=== PATIENT | male | born 1985 | race Caucasian/White ===

== ENCOUNTER 2024-09-21 12:42 | Inpatient (IN) | payer OTHER ==
[2024-09-21 13:10] VITALS: BMI 32.8
[2024-09-21] MEDS ORDERED: ACETAMINOPHEN INJECTION 100 ML ONE (15:16)
[2024-09-21 15:19] LABS: VENOUS O2 SATURATION 82.6 % (70-80); VENOUS PCO2 39.8 mmHg (38-52); VENOUS PH 7.408 (7.310-7.410)
[2024-09-21] MEDS: ACETAMINOPHEN 1000 MG/100 ML BAG IVPB ONE (15:20)
[2024-09-21] MEDS: SODIUM CHLORIDE 1,000 ML IV STA (15:20)
[2024-09-21 15:25] LABS: HEMATOCRIT 44.4 % (35.4-49); HEMOGLOBIN 14.3 GM/dL (11.7-16.9); MCH 29.2 pg (25.7-33.7); MCHC 32.2 g/dl (32.0-35.9); MEAN CELL VOLUME 90.6 fl (80-96); MEAN PLT VOLUME 8.2 fl (7.5-11.1); PLATELET COUNT 139 10^3/uL (134-434); RBC 4.91 M/mm3 (4.00-5.60); RDW 14.7 % (11.9-15.9)
[2024-09-21 15:27] LABS: INR 1.3 (0.83-1.09); PROTHROMBIN TIME (PATIENT) 14.8 SEC (9.7-13.0)
[2024-09-21 15:29] LABS: ACTIVATED PTT 32.4 SECONDS (25.2-36.5)
[2024-09-21 15:46] LABS: POTASSIUM 3.9 mmol/L (3.5-5.1)
[2024-09-21 15:48] LABS: ALBUMIN 3.5 g/dl (3.4-5.0); BLOOD UREA NITROGEN 14.7 mg/dL (7-18); CALCIUM 8.8 mg/dL (8.5-10.1)
[2024-09-21 15:52] LABS: CREATININE 2.8 mg/dL (0.55-1.3)
[2024-09-21 15:53] LABS: BILIRUBIN,TOTAL 0.8 mg/dL (0.2-1); TOT PROT 7.2 g/dl (6.4-8.2)
[2024-09-21 16:00] LABS: ANISOCYTOSIS 0; HELMET CELLS 0; HOWELL-JOLLY BODIES 0; MACROCYTOSIS 0; OVALOCYTE 0; ROULEAU 0; SICKELED CELLS 0; TARGET CELLS 0; TEAR DROP CELLS 0; TOXIC GRANULATION 0
[2024-09-21 16:07] LABS: LACTIC ACID 4.2 mmol/L (0.4-2.0)
[2024-09-21] MEDS: VANCOMYCIN HCL 1,500 MG in DEXTROSE 5%-WATER - 500 ML IVPB ONE (16:49)
[2024-09-21] MEDS ORDERED: CEFEPIME HCL/D5W 1 GM/50 ML BAG IVPB ONE (16:51)
[2024-09-21] MEDS: CEFEPIME HCL 1 GM VIAL (RESTRICTED TO ID) IVPB ONE (16:55)
[2024-09-21] MEDS: VANCOMYCIN PREMIX 1.5 GM 1,500 MG/300 ML BAG IVPB ONE (18:30)
[2024-09-21 18:47] LABS: EPI CELLS >36 /uL (0-25.1); HYALINE CASTS 4 /uL (0-3.1); URINE APPEARANCE TURBID; URINE BACTERIA 1400 /uL (0-1359); URINE BILIRUBIN 1+ (NEGATIVE); URINE COLOR DK YELLOW; URINE GLUCOSE (UA) NEGATIVE (NEGATIVE); URINE KETONE TRACE (NEGATIVE); URINE LEUK ESTERASE 2+ (NEGATIVE); URINE NITRITE NEGATIVE (NEGATIVE); URINE PROTEIN 1+ (NEGATIVE); URINE RBC 42 /uL (0-23.9); URINE UROBILINOGEN 0.2 mg/dL (0.2-1.0); URINE WBC 2822 /uL (0-25.8)
[2024-09-21 19:20] LABS: LACTIC ACID 4.4 mmol/L (0.4-2.0)
[2024-09-21] MEDS ORDERED: HEPARIN NA (PORCINE) 5,000 UNITS/ML 1ML VIAL IVPUSH PRN (19:36)
[2024-09-21] MEDS ORDERED: VANCOMYCIN 1,000 MG in DEXTROSE 5%-WATER - 250 ML IVPB SCH (21:00)
[2024-09-21] MEDS: ASPIRIN 81 MG CHEWABLE TABLETS PO ONE (21:27)
[2024-09-21] MEDS: HEPARIN INFUSION - 25,000 UNITS/500 ML INFUS.BAG IVPB SCH (21:27)
[2024-09-21] MEDS ORDERED: HEPARIN INFUSION - 25,000 UNITS/500 ML INFUS.BAG IVPB ONE (21:28)
[2024-09-21] MEDS ORDERED: ASPIRIN 81 MG CHEWABLE TABLETS ONE (21:29)
[2024-09-21 22:08] LABS: CHOLESTEROL 122 mg/dL (50-200)
[2024-09-21 22:09] LABS: LDL CHOLESTEROL (ONLY SJRH) 72 mg/dL (5-100)
[2024-09-21 22:10] LABS: HDL CHOLESTEROL 37 mg/dL (40-60)
[2024-09-21] MEDS: NYSTATIN POWDER 100,000 UNITS/GM - 15 GM TOPICAL POWDER TP SCH (23:30)
[2024-09-22] MEDS: HEPARIN NA (PORCINE) 5,000 UNITS/ML 1ML VIAL IVPUSH PRN (03:35)
[2024-09-22 11:14] LABS: HEMOGLOBIN 13.9 GM/dL (11.7-16.9); MCH 29.3 pg (25.7-33.7); MCHC 31.6 g/dl (32.0-35.9); MEAN CELL VOLUME 92.8 fl (80-96); MEAN PLT VOLUME 8.6 fl (7.5-11.1); PLATELET COUNT 116 10^3/uL (134-434); RBC 4.74 M/mm3 (4.00-5.60); RDW 14.9 % (11.9-15.9); WHITE BLOOD COUNT 15.2 K/mm3 (4.0-10.0)
[2024-09-22] MEDS: SODIUM CHLORIDE 1,000 ML IV SCH (12:57)
[2024-09-22] MEDS: CEFEPIME HCL/D5W 1 GM/50 ML BAG IVPB SCH (12:57)
[2024-09-22] MEDS ORDERED: LIDOCAINE HCL 1%, 10 MG/ML (20ML VIAL) ONE (14:04)
[2024-09-22] MEDS: VANCOMYCIN 1,000 MG in DEXTROSE 5%-WATER - 250 ML IVPB SCH (17:28)
[2024-09-22] MEDS: CEFEPIME HCL 1 GM VIAL (RESTRICTED TO ID) IVPB SCH (17:29)
[2024-09-22] MEDS: PIPERACILLIN/TAZOB 3.375 GM 50 ML IVPB ONE (17:31)
[2024-09-22] MEDS ORDERED: VANCOMYCIN/WATER FOR INJ (PEG) 1,000 MG/200 ML BAG IVPB SCH (18:30)
[2024-09-23] MEDS: PIPERACILLIN/TAZOB 2.25 GM 2.25 GM/50 ML BAG IVPB SCH (03:23)
[2024-09-23 07:19] LABS: HEMATOCRIT 42.5 % (35.4-49); HEMOGLOBIN 13.7 GM/dL (11.7-16.9); MCH 29.8 pg (25.7-33.7); MCHC 32.3 g/dl (32.0-35.9); MEAN CELL VOLUME 92.1 fl (80-96); MEAN PLT VOLUME 8.8 fl (7.5-11.1); PLATELET COUNT 116 10^3/uL (134-434); RBC 4.62 M/mm3 (4.00-5.60); WHITE BLOOD COUNT 7.6 K/mm3 (4.0-10.0)
[2024-09-23 07:33] LABS: POTASSIUM 4.1 mmol/L (3.5-5.1)
[2024-09-23 07:35] LABS: CALCIUM 8.3 mg/dL (8.5-10.1)
[2024-09-23 07:36] LABS: ALBUMIN 2.9 g/dl (3.4-5.0); BLOOD UREA NITROGEN 17.6 mg/dL (7-18)
[2024-09-23 07:38] LABS: CREATININE 1.3 mg/dL (0.55-1.3); MAGNESIUM 2.1 mg/dL (1.8-2.4)
[2024-09-23 07:39] LABS: PHOSPHOROUS 2.6 mg/dL (2.5-4.9)
[2024-09-23 07:40] LABS: BILIRUBIN,TOTAL 0.3 mg/dL (0.2-1); TOT PROT 6.6 g/dl (6.4-8.2)
[2024-09-23 09:48] LABS: ANISOCYTOSIS 0; HELMET CELLS 0; HOWELL-JOLLY BODIES 0; MACROCYTOSIS 0; OVALOCYTE 0; ROULEAU 0; SICKELED CELLS 0; TARGET CELLS 0; TEAR DROP CELLS 0; TOXIC GRANULATION 0
[2024-09-23 12:33] LABS: MAGNESIUM 1.4 mg/dL (1.8-2.4)
[2024-09-23 12:37] LABS: PHOSPHOROUS 2.6 mg/dL (2.5-4.9)
[2024-09-23 14:17] VITALS: BP 111/79; PULSE 86; RESP 18; TEMP 97.9
== END 2024-09-23 18:23 | disposition home or self-care (01) | DRG 872 ==
LOC: JER 12:42 → JERBED 19:39 → J4W 22:35
PROVIDERS: ADMIT Internal Medicine; ATTEND Internal Medicine
DX: A41.9 Sepsis, unspecified organism (principal); N39.0 Urinary tract infection, site not specified; E87.20 Acidosis, unspecified; N17.9 Acute kidney failure, unspecified; Q90.9 Down syndrome, unspecified; N47.1 Phimosis; R33.9 Retention of urine, unspecified
CPT/HCPCS: 0241U-QW; 36415; 71045-TC-FY; 76775-TC; 80053; 80061; 81003; 82550; 82553; 82803; 83605; 83735; 84100; 84436; 84443; 84484; 85025; 85027; 85610; 85730; 86850; 86900; 86901; 87040; 87086; 93005; 93010; 93306-TC; 99291; J0131; J1644